=== PATIENT | male | born 1965 | race Caucasian/White ===

== ENCOUNTER 2017-01-29 22:57 | Emergency (ER) | payer MEDICAID ==
[~2017-01-29] VITALS: Ht 177.8 cm; Wt 77.1 kg
[2017-01-29 23:14] VITALS: BP 159/98
[2017-01-29] MEDS ORDERED: HYDROCODONE/APAP 5/325MG 1 EACH TABLET PO ONE (23:30)
[2017-01-29] MEDS ORDERED: HYDROCODONE/APAP 5/325MG 1 EACH TABLET ONE (23:33)
== END 2017-01-29 23:40 | disposition home or self-care (01) ==
LOC: ER 22:57
DX: M54.5 Low back pain (principal); G89.29 Other chronic pain; F17.200 Nicotine dependence, unspecified, uncomplicated; F31.9 Bipolar disorder, unspecified; Z76.0 Encounter for issue of repeat prescription
CPT/HCPCS: A4606; Z7610

== ENCOUNTER 2017-01-30 21:22 | Emergency (ER) | payer MEDICAID ==
[~2017-01-30] VITALS: Ht 170.2 cm; Wt 72.6 kg
--- NOTE | 2017-01-30 21:32 | NUR ---
PT RPO FROM [facility]. PT AOX3 PT STATES "TOOK 6 PILLS OF NORCO 5-325MG PO AT 1900 TO LEVEL MYSELF OUT; NOT TO HARM MYSELF" PER EMS "STAFF MEMBERS WITNESSED PT TAKE 12 PILLS." RR EVEN AND UNLABORED. NO SOB NOTED. NAD NOTED. NO NVD AT THIS TIME. PT NOT DIAPHORETIC. PT PLACED ON MONITOR WAITING FOR MD BERRY.
--- NOTE | 2017-01-30 21:33 | NUR ---
PER RA PLACED IV ON LEFT AC 18G. INTACT AND PATENT. NO S/S OF INFECTION OR INFILTRATION.
--- NOTE | 2017-01-30 21:39 | NUR ---
[facility] AT BEDSIDE FOR EVAL.
--- NOTE | 2017-01-30 21:50 | NUR ---
LAB AT BEDSIDE FOR BLOOD DRAW.
[2017-01-30 21:52] LABS: BASOPHILS # (AUTO) 0.1 /CMM (0.0-0.2); BASOPHILS % (AUTO) 0.9 % (0.0-2.0); EOSINOPHILS # (AUTO) 0.1 /CMM (0.0-0.7); EOSINOPHILS % (AUTO) 0.9 % (0.0-6.0); HEMATOCRIT 44 % (39-51); HEMOGLOBIN 14.3 g/dL (13.5-17.5); LYMPHOCYTES # (AUTO) 2.4 /CMM (0.8-4.8); LYMPHOCYTES % (AUTO) 32.9 % (20.0-44.0); MEAN CORPUSCULAR HEMOGLOBIN 30 PG (26.0-33.0); MEAN CORPUSCULAR HGB CONC 33 g/dl (31.0-36.0); MEAN CORPUSCULAR VOLUME 93 fL (80-96); MONOCYTES # (AUTO) 0.7 /CMM (0.1-1.30); MONOCYTES % (AUTO) 8.8 % (2.0-12.0); NEUTROPHILS # (AUTO) 4.1 /CMM (1.8-8.9); NEUTROPHILS % (AUTO) 56.5 % (43.0-81.0); PLATELET COUNT (AUTO) 253 /CMM (150-450); RDW COEFFICIENT OF VARIATION 12.5 (11.5-15.0); RED BLOOD CELL COUNT(AUTO) 4.74 MIL/uL (4.5-6.0); WHITE BLOOD COUNT (AUTO) 7.4 K/uL (4.3-11.0)
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
[2017-01-30 22:00] LABS: CALCIUM, SERUM 8.6 mg/dL (8.5-10.1); CARBON DIOXIDE 30 mmol/L (21-32); CHLORIDE 104 mmol/L (98-107); CREATININE 1.2 mg/dL (0.6-1.3); GLUCOSE 145 mg/dL (74-106); POTASSIUM 3.9 mmol/L (3.5-5.1); SODIUM SERUM 142 mmol/L (136-145); UREA NITROGEN, BLOOD 27 mg/dL (7-18)
[2017-01-30 22:06] LABS: ACETAMINOPHEN < 10 ug/ml (10-30); ALANINE AMINOTRANSFERASE 29 U/L (12-78); ALKALINE PHOSPHATASE 93 U/L (46-116); ASPARTATE AMINOTRANSFERASE 25 U/L (15-37); BILIRUBIN,DIRECT 0.2 mg/dL (0.0-0.2); BILIRUBIN,TOTAL 0.6 mg/dL (0.2-1.0); SALICYLATE 0.6 mg/dL (2.8-20.0); TOTAL PROTEIN, SERUM 7.5 g/dL (6.4-8.2)
--- NOTE | 2017-01-30 23:00 | NUR ---
Patient is resting comfortably in bed with eyes closed. Easily aroused. VSS
--- NOTE | 2017-01-31 02:06 | NUR ---
Patient is resting comfortably in bed with eyes closed. Easily aroused. VSS. pt denies any pain at this time.
--- NOTE | 2017-01-31 02:14 | NUR ---
LAB AT BEDSIDE FOR BLOOD DRAW
--- NOTE | 2017-01-31 03:25 | NUR ---
Patient is resting comfortably in bed with eyes closed. Easily aroused. VSS. pt ambulatory to restroom.
--- NOTE | 2017-01-31 05:19 | NUR ---
Patient is resting comfortably in bed with eyes closed. Easily aroused. VSS. PT ABLE TO MAKE NEEDS MET.
--- NOTE | 2017-01-31 05:30 | NUR ---
IV removed. Catheter intact and site benign. Pressure and 4x4 applied to site. No bleeding noted.
--- NOTE | 2017-01-31 05:40 | NUR ---
PT AOX3 PT DENIES HI / SI AT THIS TIME. DR. ABREU MADE AWARE.
--- NOTE | 2017-01-31 05:55 | NUR ---
Patient discharged to home in stable condition. Written and verbal after care instructions given. Patient refused to sign d/c papers. aware. pt ambulatory with a steady gait. pt instructed not to drive. pt verbalize understanding.
[2017-02-01 05:23] VITALS: BP 119/81
== END 2017-01-31 05:55 | disposition home or self-care (01) ==
LOC: ER 21:23
DX: T39.1X1A Poisoning by 4-Aminophenol derivatives, accidental (unintentional), initial encounter (principal); F31.9 Bipolar disorder, unspecified; F17.200 Nicotine dependence, unspecified, uncomplicated; Y92.89 Other specified places as the place of occurrence of the external cause
CPT/HCPCS: 36415; 80048-TC; 80076-TC; 85025-TC; A4606; G0480; Z7610

== ENCOUNTER 2017-01-31 08:34 | Emergency (ER) | payer MEDICAID | END 2017-01-31 09:53 | disposition home or self-care (01) | LOC: ER 08:34 | DX: Z76.0 Encounter for issue of repeat prescription (principal); M25.511 Pain in right shoulder ==

== ENCOUNTER 2017-02-01 23:06 | Emergency (ER) | payer MEDICAID ==
[~2017-02-01] VITALS: Ht 177.8 cm; Wt 74.8 kg
[2017-02-02 02:08] LABS: BASOPHILS % (AUTO) 0.5 % (0.0-2.0); EOSINOPHILS # (AUTO) 0.1 /CMM (0.0-0.7); EOSINOPHILS % (AUTO) 0.9 % (0.0-6.0); HEMATOCRIT 43 % (39-51); HEMOGLOBIN 14.3 g/dL (13.5-17.5); LYMPHOCYTES # (AUTO) 2.4 /CMM (0.8-4.8); LYMPHOCYTES % (AUTO) 28.9 % (20.0-44.0); MEAN CORPUSCULAR HEMOGLOBIN 31 PG (26.0-33.0); MEAN CORPUSCULAR HGB CONC 34 g/dl (31.0-36.0); MEAN CORPUSCULAR VOLUME 93 fL (80-96); MONOCYTES # (AUTO) 1.2 /CMM (0.1-1.30); MONOCYTES % (AUTO) 14.5 % (2.0-12.0); NEUTROPHILS # (AUTO) 4.6 /CMM (1.8-8.9); NEUTROPHILS % (AUTO) 55.2 % (43.0-81.0); PLATELET COUNT (AUTO) 262 /CMM (150-450); RDW COEFFICIENT OF VARIATION 12.8 (11.5-15.0); RED BLOOD CELL COUNT(AUTO) 4.57 MIL/uL (4.5-6.0); WHITE BLOOD COUNT (AUTO) 8.3 K/uL (4.3-11.0)
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
[2017-02-02 02:15] LABS: APPEARANCE,URINE CLEAR (CLEAR); BILIRUBIN,URINE NEGATIVE (NEGATIVE); BLOOD, URINE NEGATIVE Ery/uL (NEGATIVE); COLOR,URINE YELLOW (YELLOW); KETONES,URINE TRACE (NEGATIVE); LEUKOCYTE ESTERASE ,URINE NEGATIVE (NEGATIVE); NITRITE, URINE NEGATIVE (NEGATIVE); PROTEIN,URINE TRACE mg/dl (NEGATIVE); UGLUCOSE NEGATIVE (NEGATIVE)
[2017-02-02 02:21] LABS: CALCIUM, SERUM 9.1 mg/dL (8.5-10.1); CARBON DIOXIDE 32 mmol/L (21-32); CHLORIDE 104 mmol/L (98-107); CREATININE 1.1 mg/dL (0.6-1.3); GLUCOSE 92 mg/dL (74-106); POTASSIUM 4.1 mmol/L (3.5-5.1); SODIUM SERUM 143 mmol/L (136-145); UREA NITROGEN, BLOOD 25 mg/dL (7-18)
[2017-02-02 02:22] LABS: BACTERIA,URINE None seen /HPF (None Seen); RBC,URINE 0-2 /HPF (0-2); SQUAMOUS EPITHELIAL CELL,UR Rare /HPF (None Seen); WBC,URINE 0-2 /HPF (0-3)
[2017-02-02 02:23] LABS: MUCUS,URINE Moderate /LPF (None Seen); URINE AMORPHOUS URATE Few /HPF (None Seen)
[2017-02-02 02:28] LABS: ALANINE AMINOTRANSFERASE 35 U/L (12-78); ALBUMIN 4.1 g/dL (3.4-5.0); ALKALINE PHOSPHATASE 94 U/L (46-116); ASPARTATE AMINOTRANSFERASE 29 U/L (15-37); BILIRUBIN,DIRECT 0.3 mg/dL (0.0-0.2); BILIRUBIN,TOTAL 0.9 mg/dL (0.2-1.0); TOTAL PROTEIN, SERUM 8.1 g/dL (6.4-8.2)
[2017-02-02 02:29] LABS: ACETAMINOPHEN 0 ug/ml (10-30); ALCOHOL, BLOOD < 3 mg/dL (0-0); SALICYLATE 0.7 mg/dL (2.8-20.0)
[2017-02-02 02:43] VITALS: BP 124/88
== END 2017-02-02 02:43 | disposition home or self-care (01) ==
LOC: ER 23:09
DX: G89.29 Other chronic pain (principal); M25.552 Pain in left hip; Z76.5 Malingerer [conscious simulation]; B19.20 Unspecified viral hepatitis C without hepatic coma; F31.9 Bipolar disorder, unspecified; F17.200 Nicotine dependence, unspecified, uncomplicated
CPT/HCPCS: 36415; 80048-TC; 80076-TC; 80305; 81000-TC; 85025-TC; A4606; G0480; Z7610

== ENCOUNTER 2019-09-18 02:22 | Emergency (ER) | payer SELFPAY ==
[~2019-09-18] VITALS: Ht 177.8 cm; Wt 81.6 kg
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
--- NOTE | 2019-09-18 02:54 | NUR ---
blood drawn and sent to lab
[2019-09-18 02:57] LABS: BASOPHILS # (AUTO) 0.1 /CMM (0.0-0.2); BASOPHILS % (AUTO) 0.6 % (0.0-2.0); EOSINOPHILS % (AUTO) 0.2 % (0.0-6.0); HEMATOCRIT 48 % (39-51); LYMPHOCYTES # (AUTO) 2.1 /CMM (0.8-4.8); LYMPHOCYTES % (AUTO) 19.4 % (20.0-44.0); MEAN CORPUSCULAR HGB CONC 34 g/dl (31.0-36.0); MEAN CORPUSCULAR VOLUME 95 fL (80-96); MONOCYTES # (AUTO) 0.8 /CMM (0.1-1.30); MONOCYTES % (AUTO) 7.5 % (2.0-12.0); NEUTROPHILS # (AUTO) 7.7 /CMM (1.8-8.9); NEUTROPHILS % (AUTO) 72.3 % (43.0-81.0); PLATELET COUNT (AUTO) 240 /CMM (150-450); RED BLOOD CELL COUNT(AUTO) 5.03 MIL/uL (4.5-6.0); WHITE BLOOD COUNT (AUTO) 10.7 K/uL (4.3-11.0)
[2019-09-18 03:08] LABS: CALCIUM, SERUM 9.4 mg/dL (8.5-10.1); CARBON DIOXIDE 30 mmol/L (21-32); CHLORIDE 102 mmol/L (98-107); CREATININE 1.3 mg/dL (0.6-1.3); GLUCOSE 108 mg/dL (74-106); POTASSIUM 4.5 mmol/L (3.5-5.1); SODIUM SERUM 140 mmol/L (136-145); UREA NITROGEN, BLOOD 20 mg/dL (7-18)
[2019-09-18 03:22] LABS: ALANINE AMINOTRANSFERASE 47 U/L (12-78); ALBUMIN 4.1 g/dL (3.4-5.0); ALKALINE PHOSPHATASE 81 U/L (46-116); ASPARTATE AMINOTRANSFERASE 33 U/L (15-37); B-TYPE NATRIURETIC PEPTIDE 124 PG/ML (0-125); BILIRUBIN,DIRECT 0.1 mg/dL (0.0-0.2); BILIRUBIN,TOTAL 0.5 mg/dL (0.2-1.0); TOTAL PROTEIN, SERUM 7.8 g/dL (6.4-8.2)
--- NOTE | 2019-09-18 06:06 | NUR ---
IV removed. Catheter intact and site benign. Pressure and 4x4 applied to site. No bleeding noted.
[2019-09-18 06:07] VITALS: BP 155/98
--- NOTE | 2019-09-18 06:07 | NUR ---
Patient discharged to home in stable condition. Left without aftercare instructions.
== END 2019-09-18 06:09 | disposition home or self-care (01) ==
LOC: ER 02:22
DX: R60.0 Localized edema (principal); F32.9 Major depressive disorder, single episode, unspecified; F17.200 Nicotine dependence, unspecified, uncomplicated; Z98.890 Other specified postprocedural states; Z88.0 Allergy status to penicillin
CPT/HCPCS: 36415; 71045-TC; 80048-TC; 80076-TC; 83880; 84484-TC; 85025-TC; 93970-TC

== ENCOUNTER 2020-05-02 01:06 | Emergency (ER) | payer SELFPAY ==
[~2020-05-02] VITALS: Ht 157.5 cm; Wt 77.1 kg
[2020-05-02 01:15] VITALS: BP 152/98
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
--- NOTE | 2020-05-02 01:43 | NUR ---
[employer] AT BEDSIDE
[2020-05-02] MEDS ORDERED: MORPHINE SULFATE INJ 4 MG/ML DISP.SYRIN ONE (01:56)
[2020-05-02] MEDS ORDERED: ONDANSETRON HCL/PF 4 MG/2 ML VIAL ONE (01:56)
[2020-05-02] MEDS ORDERED: ONDANSETRON HCL/PF 4 MG/2 ML VIAL IM ONE (02:00)
[2020-05-02] MEDS ORDERED: MORPHINE SULFATE INJ 2 MG/ML DISP.SYRIN IM ONE (02:00)
[2020-05-02 02:17] LABS: BASOPHILS # (AUTO) 0.1 /CMM (0.0-0.2); BASOPHILS % (AUTO) 1.5 % (0.0-2.0); EOSINOPHILS % (AUTO) 2.3 % (0.0-6.0); HEMATOCRIT 41 % (39-51); HEMOGLOBIN 13.5 g/dL (13.5-17.5); LYMPHOCYTES # (AUTO) 2.2 /CMM (0.8-4.8); LYMPHOCYTES % (AUTO) 36.7 % (20.0-44.0); MEAN CORPUSCULAR HGB CONC 33 g/dl (31.0-36.0); MEAN CORPUSCULAR VOLUME 95 fL (80-96); MONOCYTES # (AUTO) 0.7 /CMM (0.1-1.30); MONOCYTES % (AUTO) 12.1 % (2.0-12.0); NEUTROPHILS # (AUTO) 2.8 /CMM (1.8-8.9); NEUTROPHILS % (AUTO) 47.4 % (43.0-81.0); PLATELET COUNT (AUTO) 262 /CMM (150-450); RED BLOOD CELL COUNT(AUTO) 4.26 MIL/uL (4.5-6.0); WHITE BLOOD COUNT (AUTO) 5.9 K/uL (4.3-11.0)
[2020-05-02 02:28] LABS: CARBON DIOXIDE 29 mmol/L (21-32); CHLORIDE 103 mmol/L (98-107); CREATININE 1.2 mg/dL (0.6-1.3); GLUCOSE 110 mg/dL (74-106); POTASSIUM 4.3 mmol/L (3.5-5.1); SODIUM SERUM 141 mmol/L (136-145); UREA NITROGEN, BLOOD 26 mg/dL (7-18)
[2020-05-02 02:34] LABS: ALANINE AMINOTRANSFERASE 56 U/L (12-78); ALBUMIN 3.9 g/dL (3.4-5.0); ALCOHOL, BLOOD < 3 mg/dL (0-0); ALKALINE PHOSPHATASE 90 U/L (46-116); ASPARTATE AMINOTRANSFERASE 48 U/L (15-37); BILIRUBIN,DIRECT 0.2 mg/dL (0.0-0.2); BILIRUBIN,TOTAL 0.7 mg/dL (0.2-1.0); TOTAL PROTEIN, SERUM 7.5 g/dL (6.4-8.2)
[2020-05-02] MEDS ORDERED: IOHEXOL-350 100 ML VIAL IV ONE (02:40)
[2020-05-02] MEDS ORDERED: IV NS 0.9% 250 ML IV ONE (02:40)
--- NOTE | 2020-05-02 02:47 | NUR ---
Patient does not wish to proceed with medical care recommended by Dr. Dowling. Patient given information related to possible complications, up to and including , which could occur as a result of leaving the hospital at this time. Patient verbalizes understanding of risks involved due to leaving against medical advice. Patient has signed AMA form.
== END 2020-05-02 03:44 | disposition left against medical advice (07) ==
LOC: ER 01:10
DX: M54.2 Cervicalgia (principal); M25.512 Pain in left shoulder; M25.552 Pain in left hip; Z86.19 Personal history of other infectious and parasitic diseases; Z98.890 Other specified postprocedural states; Z88.0 Allergy status to penicillin; V19.9XXA Pedal cyclist (driver) (passenger) injured in unspecified traffic accident, initial encounter; Y93.89 Activity, other specified; Y92.89 Other specified places as the place of occurrence of the external cause; Y99.8 Other external cause status
CPT/HCPCS: 36415; 73030; 73552; 73564; 80048; 80076; 80320; 85025; 85730; 86850; 96372 ×2; 99284; J2270; J2405; J7050; Q9967; G0480

== ENCOUNTER 2020-07-11 16:35 | Emergency (ER) | payer SELFPAY ==
[~2020-07-11] VITALS: Ht 177.8 cm; Wt 77.1 kg
[2020-07-11 16:48] VITALS: BP 175/75
--- NOTE | 2020-07-11 17:16 | NUR ---
Patient discharged to home in stable condition. Written and verbal after care instructions given. Patient verbalizes understanding of instruction.
== END 2020-07-11 17:18 | disposition home or self-care (01) ==
LOC: ER 16:39
DX: M54.2 Cervicalgia (principal); Z86.19 Personal history of other infectious and parasitic diseases; Z79.899 Other long term (current) drug therapy; Z88.0 Allergy status to penicillin

== ENCOUNTER 2020-07-31 06:10 | Emergency (ER) | payer MEDICAID ==
[~2020-07-31] VITALS: Ht 177.8 cm; Wt 77.1 kg
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
[2020-07-31] MEDS ORDERED: KETOROLAC TROMETHAMINE INJ 30 MG/ML VIAL ONE (06:22)
[2020-07-31] MEDS ORDERED: KETOROLAC TROMETHAMINE INJ 60 MG/2 ML VIAL IM ONE (06:30)
[2020-07-31 07:06] VITALS: BP 118/72
--- NOTE | 2020-07-31 07:06 | NUR ---
Patient discharged to home in stable condition. Written and verbal after care instructions given. Patient verbalizes understanding of instruction and RX. Pt ambulatory with steady gait. vss.
== END 2020-07-31 07:07 | disposition home or self-care (01) ==
LOC: ER 06:13
DX: M21.612 Bunion of left foot (principal); F32.9 Major depressive disorder, single episode, unspecified; F17.200 Nicotine dependence, unspecified, uncomplicated; Z98.890 Other specified postprocedural states; Z88.0 Allergy status to penicillin
CPT/HCPCS: 73630; 96372; 99283; 99406; J1885

== ENCOUNTER 2020-10-23 20:16 | Emergency (ER) | payer SELFPAY ==
[~2020-10-23] VITALS: Ht 177.8 cm; Wt 77.1 kg
[2020-10-23 20:16] VITALS: BP 158/106
[2020-10-23] MEDS ORDERED: MUPIROCIN OINT 2% 22 GM TUBE TP ONE (20:30)
[2020-10-23] MEDS ORDERED: KETOROLAC TROMETHAMINE INJ 30 MG/ML VIAL IM ONE (20:30)
[2020-10-23] MEDS ORDERED: SULFAMETH/TRIMETH 800/160 MG 1 UDTAB TABLET PO ONE (20:30)
[2020-10-23] MEDS ORDERED: KETOROLAC TROMETHAMINE INJ 30 MG/ML VIAL ONE (20:31)
[2020-10-23] MEDS ORDERED: SULFAMETH/TRIMETH 800/160 MG 1 UDTAB TABLET ONE (20:31)
[2020-10-23] MEDS ORDERED: SULF1TAB48 PO (20:36)
[2020-10-23] MEDS ORDERED: CLOT15CR27 TP (20:36)
[2020-10-23] MEDS ORDERED: IBUP-1957 PO (20:36)
[2020-10-23] MEDS ORDERED: MUPI15CR TP (20:36)
[2020-10-23] MEDS ORDERED: MUPIROCIN OINT 2% 22 GM TUBE ONE (20:38)
--- NOTE | 2020-10-23 20:44 | NUR ---
Patient discharged to home in stable condition. Written and verbal after care instructions given. Patient verbalizes understanding of instruction.
--- NOTE | 2020-10-23 20:44 | NUR ---
[facility] AT BEDSIDE FOR WOUND CARE.
== END 2020-10-23 20:46 | disposition home or self-care (01) ==
LOC: ER 20:17
DX: B35.3 Tinea pedis (principal); G89.29 Other chronic pain; M54.5 Low back pain; L03.116 Cellulitis of left lower limb; F17.210 Nicotine dependence, cigarettes, uncomplicated; I10 Essential (primary) hypertension; F32.9 Major depressive disorder, single episode, unspecified; Z98.890 Other specified postprocedural states; Z88.0 Allergy status to penicillin; Z79.899 Other long term (current) drug therapy
CPT/HCPCS: 96372; 99283; 99406; J1885

== ENCOUNTER 2021-02-12 19:45 | Emergency (ER) | payer SELFPAY ==
[~2021-02-12] VITALS: Ht 177.8 cm; Wt 77.1 kg
[~2021-02-12 19:45] MED LIST: CLOT15CR27 TP; IBUP-1957 PO; MUPI15CR TP; SULF1TAB48 PO
[2021-02-12 20:18] VITALS: BP 132/76
[2021-02-12] MEDS ORDERED: KETOROLAC TROMETHAMINE INJ 30 MG/ML VIAL IM ONE (20:30)
[2021-02-12] MEDS ORDERED: CYCLOBENZAPRINE 10 MG TABLET PO ONE (20:30)
[2021-02-12] MEDS ORDERED: CYCLOBENZAPRINE 10 MG TABLET ONE (20:52)
[2021-02-12] MEDS ORDERED: KETOROLAC TROMETHAMINE INJ 30 MG/ML VIAL ONE (20:52)
[2021-02-12] MEDS ORDERED: MORPHINE SULFATE INJ 2 MG/ML DISP.SYRIN IM ONE (21:00)
[2021-02-12] MEDS ORDERED: MORPHINE SULFATE INJ 4 MG/ML DISP.SYRIN ONE (21:05)
[2021-02-12] MEDS ORDERED: IBUP-1957 PO (21:21)
[2021-02-12] MEDS ORDERED: TRAM1TAB PO (21:21)
[2021-02-12] MEDS ORDERED: CYCL5TAB PO (21:21)
== END 2021-02-12 21:30 | disposition home or self-care (01) ==
LOC: ER 19:46
DX: M54.5 Low back pain (principal); G89.29 Other chronic pain; I10 Essential (primary) hypertension; F32.9 Major depressive disorder, single episode, unspecified; F17.200 Nicotine dependence, unspecified, uncomplicated; Z98.890 Other specified postprocedural states; Z88.0 Allergy status to penicillin
CPT/HCPCS: 96372 ×2; 99284; J1885; J2270

== ENCOUNTER 2022-06-03 03:24 | Emergency (ER) | payer OTHER ==
[~2022-06-03] VITALS: Ht 177.8 cm; Wt 77.1 kg
[~2022-06-03 03:24] MED LIST changes: +CYCL5TAB PO; +TRAM1TAB PO
[2022-06-03 03:30] VITALS: BP 172/106
--- NOTE | 2022-06-03 03:38 | NUR ---
[employer] AT BEDSIDE
--- NOTE | 2022-06-03 03:53 | NUR ---
PT DECIDED TO LEAVE PRIOR TO BEING SEEN BY MD. MD MADE AWARE. AMBULATED OUT OF ER WITH STEADY GAIT.
[2022-06-03] MEDS ORDERED: IBUPROFEN 400 MG TABLET PO ONE (04:00)
== END 2022-06-03 03:56 | disposition left against medical advice (07) ==
LOC: ER 03:31
DX: Z53.21 Procedure and treatment not carried out due to patient leaving prior to being seen by health care provider (principal)

== ENCOUNTER 2022-09-03 08:27 | Emergency (ER) | payer OTHER ==
[~2022-09-03] VITALS: Ht 170.2 cm; Wt 77.1 kg
[~2022-09-03 08:27] MED LIST changes: +CLIN300C12 PO; +NAPR500T6 PO
[2022-09-03 08:42] VITALS: BP 128/87
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
[2022-09-03] MEDS ORDERED: KETOROLAC TROMETHAMINE INJ 30 MG/ML VIAL ONE (08:58)
[2022-09-03] MEDS ORDERED: CYCLOBENZAPRINE 10 MG TABLET ONE (08:58)
[2022-09-03] MEDS ORDERED: KETOROLAC TROMETHAMINE INJ 60 MG/2 ML VIAL IM ONE (09:00)
[2022-09-03] MEDS ORDERED: CYCLOBENZAPRINE 10 MG TABLET PO ONE (09:00)
--- NOTE | 2022-09-03 09:34 | NUR ---
pt taken to ct via wheelchair.
--- NOTE | 2022-09-03 09:56 | NUR ---
pt returned from ct ambulating with steady gait.
[2022-09-03] MEDS ORDERED: LIDO30AD10 TP (10:55)
[2022-09-03] MEDS ORDERED: CYCL5TAB PO (10:55)
[2022-09-03] MEDS ORDERED: NAPR-1164 PO (10:55)
--- NOTE | 2022-09-03 11:01 | NUR ---
Patient discharged to home in stable condition. Written and verbal after care instructions given. Patient verbalizes understanding of instruction.
== END 2022-09-03 11:03 | disposition home or self-care (01) ==
LOC: ER 08:35
DX: S22.080A Wedge compression fracture of T11-T12 vertebra, initial encounter for closed fracture (principal); M25.512 Pain in left shoulder; I10 Essential (primary) hypertension; F33.9 Major depressive disorder, recurrent, unspecified; F17.200 Nicotine dependence, unspecified, uncomplicated; Z79.899 Other long term (current) drug therapy; Z88.0 Allergy status to penicillin; V09.9XXA Pedestrian injured in unspecified transport accident, initial encounter; Y93.89 Activity, other specified; Y92.410 Unspecified street and highway as the place of occurrence of the external cause; Y99.8 Other external cause status
CPT/HCPCS: 99285; 72128; 96372; 72070; 73030; J1885

== ENCOUNTER 2023-02-11 09:29 | Emergency (ER) | payer OTHER ==
[~2023-02-11] VITALS: Ht 177.8 cm; Wt 78.0 kg
[~2023-02-11 09:29] MED LIST changes: +LIDO30AD10 TP; +NAPR-1164 PO
[2023-02-11] MEDS ORDERED: KETOROLAC TROMETHAMINE INJ 60 MG/2 ML VIAL IM ONE (10:00)
[2023-02-11] MEDS ORDERED: KETOROLAC TROMETHAMINE INJ 30 MG/ML VIAL ONE (10:01)
[2023-02-11 10:21] LABS: CALCIUM, SERUM 9.6 mg/dL (8.5-10.1); CARBON DIOXIDE 27 mmol/L (21-32); CHLORIDE 103 mmol/L (98-107); CREATININE 1.7 mg/dL (0.6-1.3); GLUCOSE 98 mg/dL (74-106); POTASSIUM 4.7 mmol/L (3.5-5.1); SODIUM SERUM 141 mmol/L (136-145); UREA NITROGEN, BLOOD 34 mg/dL (7-18)
[2023-02-11 10:27] LABS: HEMOGLOBIN 15.1 g/dL (13.5-17.5); PLATELET COUNT (AUTO) 219 K/uL (150-450); RED BLOOD CELL COUNT(AUTO) 4.67 MIL/uL (4.5-6.0)
[2023-02-11 10:32] LABS: BASOPHILS # (AUTO) 0.5 K/uL (0.0-0.2); BASOPHILS % (AUTO) 4.9 % (0.0-2.0); EOSINOPHILS # (AUTO) 0.2 K/uL (0.0-0.7); EOSINOPHILS % (AUTO) 2.3 % (0.0-6.0); HEMATOCRIT 43 % (39-51); LYMPHOCYTES # (AUTO) 0.9 K/uL (0.8-4.8); LYMPHOCYTES % (AUTO) 9.2 % (20.0-44.0); MEAN CORPUSCULAR HEMOGLOBIN 32 PG (26.0-33.0); MEAN CORPUSCULAR HGB CONC 35 g/dl (31.0-36.0); MEAN CORPUSCULAR VOLUME 93 fL (80-96); MONOCYTES # (AUTO) 0.5 K/uL (0.1-1.30); MONOCYTES % (AUTO) 5.8 % (2.0-12.0); NEUTROPHILS # (AUTO) 7.3 K/uL (1.8-8.9); NEUTROPHILS % (AUTO) 77.8 % (43.0-81.0); RED CELL DISTRIBUTION WIDTH 13.2 % (11.5-15.0); WHITE BLOOD COUNT (AUTO) 9.4 K/uL (4.3-11.0)
[2023-02-11] MEDS ORDERED: TRAM-351 PO (11:27)
[2023-02-11] MEDS ORDERED: NALO1DIS2 IM (11:27)
[2023-02-11] MEDS ORDERED: TRAMADOL HCL 50 MG TABLET ONE (11:30)
[2023-02-11] MEDS ORDERED: TRAMADOL HCL 50 MG TABLET PO ONE (11:30)
[2023-02-11 11:46] VITALS: BP 90/75; TEMP 98.8; O2SAT 97
== END 2023-02-11 11:47 | disposition home or self-care (01) ==
LOC: ER 09:34
DX: S22.43XA Multiple fractures of ribs, bilateral, initial encounter for closed fracture (principal); F19.10 Other psychoactive substance abuse, uncomplicated; I10 Essential (primary) hypertension; F31.9 Bipolar disorder, unspecified; F17.200 Nicotine dependence, unspecified, uncomplicated; Z88.0 Allergy status to penicillin; Z79.899 Other long term (current) drug therapy; X58.XXXA Exposure to other specified factors, initial encounter; Y93.89 Activity, other specified; Y92.89 Other specified places as the place of occurrence of the external cause; Y99.8 Other external cause status
CPT/HCPCS: 99284; 96372; 93005; 71111; 85025; 80048; 36415; 84484; J1885

== ENCOUNTER 2023-10-10 11:21 | Emergency (ER) | payer OTHER ==
[~2023-10-10] VITALS: Ht 177.8 cm; Wt 77.1 kg
[~2023-10-10 11:21] MED LIST changes: +NALO1DIS2 IM; +TRAM-351 PO
[2023-10-10] MEDS ORDERED: LIDO30AD10 TP (12:36)
[2023-10-10] MEDS ORDERED: NALO4SPR BNOSTRILS (12:36)
[2023-10-10] MEDS ORDERED: HYDR-4303 PO (12:36)
[2023-10-10] MEDS ORDERED: CYCL5TAB PO (12:36)
[2023-10-10] MEDS ORDERED: IBUP-1955 PO (12:36)
[2023-10-10] MEDS: KETOROLAC TROMETHAMINE 15 MG/ML VIAL IM ONE (12:50)
[2023-10-10] MEDS: HYDROCODONE/APAP 5/325MG TABLET PO ONE (12:50)
[2023-10-10] MEDS ORDERED: HYDROCODONE/APAP 5/325MG TABLET ONE (12:52)
[2023-10-10] MEDS ORDERED: KETOROLAC TROMETHAMINE 15 MG/ML VIAL ONE (12:52)
[2023-10-10 12:55] VITALS: BP 169/15; TEMP 98.4; O2SAT 99
== END 2023-10-10 12:56 | disposition home or self-care (01) ==
LOC: ER 11:32
DX: G89.29 Other chronic pain (principal); M54.9 Dorsalgia, unspecified; M54.2 Cervicalgia; I10 Essential (primary) hypertension; F31.9 Bipolar disorder, unspecified; Z88.0 Allergy status to penicillin
CPT/HCPCS: 99283; 96372; J1885